=== PATIENT | male | born 1965 | race Caucasian/White ===

== ENCOUNTER 2018-03-07 14:55 | Emergency (ER) | payer SELFPAY ==
[~2018-03-07] VITALS: Ht 182.9 cm; Wt 97.1 kg
[2018-03-07 15:05] VITALS: Ht 182.9 cm; Wt 97.1 kg
[2018-03-07 17:39] VITALS: BP 158/110
== END 2018-03-07 18:02 | disposition home or self-care (01) ==
LOC: ED 14:55
DX: S20.229D Contusion of unspecified back wall of thorax, subsequent encounter (principal); S20.219D Contusion of unspecified front wall of thorax, subsequent encounter; S23.3XXA Sprain of ligaments of thoracic spine, initial encounter; F17.210 Nicotine dependence, cigarettes, uncomplicated; I10 Essential (primary) hypertension; Z88.8 Allergy status to other drugs, medicaments and biological substances; Z71.6 Tobacco abuse counseling; V49.9XXD Car occupant (driver) (passenger) injured in unspecified traffic accident, subsequent encounter
CPT/HCPCS: 99406; J1885